=== PATIENT | female | born 1995 | race Caucasian/White ===

== ENCOUNTER 2021-06-26 11:15 | Emergency (ER) | payer OTHER ==
[~2021-06-26] VITALS: Ht 165.1 cm; Wt 54.4 kg
--- NOTE | 2021-06-26 11:28 | NUR ---
[email or web address], medical screening exam in progress
[2021-06-26] MEDS ORDERED: ACETAMINOPHEN ES 500 MG TABLET PO ONE (11:30)
[2021-06-26] MEDS ORDERED: ACETAMINOPHEN ES 500 MG TABLET ONE (11:41)
[2021-06-26 11:50] LABS: HEMATOCRIT 31.2 % (31.2-41.9); MEAN CORPUSCULAR HEMOGLOBIN 30.8 uug (24.7-32.8); MEAN CORPUSCULAR VOLUME 87.5 fL (75.5-95.3); PLATELET COUNT (AUTO) 304 K/uL (179-408)
[2021-06-26 11:54] LABS: CARBON DIOXIDE 24 mmol/L (21-32); CHLORIDE 100 mmol/L (98-107); CREATININE 0.5 mg/dL (0.6-1.3); GLUCOSE 91 mg/dL (74-106); POTASSIUM 3.8 mmol/L (3.5-5.1); UREA NITROGEN, BLOOD 7 mg/dL (7-18)
[2021-06-26 12:00] LABS: ALANINE AMINOTRANSFERASE 16 U/L (14-59); ALKALINE PHOSPHATASE 60 U/L (50-136); ASPARTATE AMINOTRANSFERASE 17 U/L (15-37); BILIRUBIN,DIRECT 0.1 mg/dL (0.0-0.2); BILIRUBIN,TOTAL 0.2 mg/dL (0.2-1.0); LIPASE 129 U/L (73-393); TOTAL PROTEIN, SERUM 7.2 g/dL (6.4-8.2)
[2021-06-26 12:12] LABS: *BILIRUBIN,URIN NEGATIVE (NEGATIVE); *BLOOD, URINE NEGATIVE (NEGATIVE); *CLARITY,URINE CLEAR (CLEAR); *COLOR,URINE YELLOW (YELLOW); *KETONES,URINE NEGATIVE (NEGATIVE); *UROBILINOGEN,URINE 0.2 E.U./dl (NORMAL); LEUKOCYTE ESTERASE ,URINE 1+ (NEGATIVE); NITRITE, URINE NEGATIVE (NEGATIVE); UGLUCOSE NEGATIVE (NEGATIVE)
--- NOTE | 2021-06-26 13:11 | NUR ---
For discharge, pending written discharge papers from Dr Souza
[2021-06-26] MEDS ORDERED: NITR100C11 PO (14:09)
--- NOTE | 2021-06-26 14:23 | NUR ---
Patient discharged to home in stable condition with brisk steady gait. Written and verbal after care instructions given to patient and family with spouse in [place]. Patient and family verbalized understanding of instructions. Stressed follow up with medical director or return to ER for worsening s/s.
[2021-06-26 14:51] LABS: BACTERIA,URINE FEW /HPF (NONE SEEN); RBC,URINE 0-3 /HPF (0-3); SQUAMOUS EPITHELIAL CELL,UR MODERATE /HPF (NONE SEEN); URINE AMORPHOUS URATE FEW /HPF
== END 2021-06-26 14:24 | disposition home or self-care (01) ==
LOC: ER 11:15
DX: O23.42 Unspecified infection of urinary tract in pregnancy, second trimester (principal); Z3A.25 25 weeks gestation of pregnancy; R10.32 Left lower quadrant pain
CPT/HCPCS: 36415; 70030-TC; 83690; 85025; 87086; A4663; A9150

== ENCOUNTER 2021-07-10 08:00 | Emergency (ER) | payer OTHER ==
[~2021-07-10] VITALS: Ht 165.1 cm; Wt 60.8 kg
[~2021-07-10 08:00] MED LIST: NITR100C11 PO
[2021-07-10] MEDS: ACETAMINOPHEN 325 MG TABLET PO ONE (08:45)
[2021-07-10 08:49] LABS: HEMATOCRIT 32.3 % (31.2-41.9); MEAN CORPUSCULAR HEMOGLOBIN 30.3 uug (24.7-32.8); MEAN CORPUSCULAR VOLUME 88.3 fL (75.5-95.3); PLATELET COUNT (AUTO) 301 K/uL (179-408)
[2021-07-10] MEDS ORDERED: ACETAMINOPHEN 325 MG TABLET ONE (08:50)
[2021-07-10 08:57] LABS: CREATININE 0.6 mg/dL (0.6-1.3); POTASSIUM 3.9 mmol/L (3.5-5.1)
[2021-07-10 09:10] LABS: BILIRUBIN,DIRECT 0.1 mg/dL (0.0-0.2); BILIRUBIN,TOTAL 0.3 mg/dL (0.2-1.0); TOTAL PROTEIN, SERUM 7.5 g/dL (6.4-8.2)
[2021-07-10 10:21] VITALS: BP 119/61
--- NOTE | 2021-07-10 10:21 | NUR ---
Patient discharged to home in stable condition. Written and verbal after care instructions given. Patient verbalizes understanding of instructions. Stressed follow up or return to ER for worsening s/s.
== END 2021-07-10 10:22 | disposition home or self-care (01) ==
LOC: ER 08:00
DX: O26.892 Other specified pregnancy related conditions, second trimester (principal); R07.9 Chest pain, unspecified; Z3A.00 Weeks of gestation of pregnancy not specified
CPT/HCPCS: 36415; 70030-TC; 85025; 85730; 93005; A4663

== ENCOUNTER 2022-05-26 20:27 | Emergency (ER) | payer OTHER ==
[~2022-05-26] VITALS: Ht 157.5 cm; Wt 49.9 kg
[2022-05-26] MEDS ORDERED: HYDR-500 PO (21:53)
--- NOTE | 2022-05-26 22:00 | NUR ---
Patient discharged to home in stable condition with taking patient home.. Written and verbal after care instructions given. Patient verbalizes understanding of instructions. Stressed follow up or return to ER for worsening s/s.
[2022-05-26 22:56] VITALS: BP 130/75
== END 2022-05-26 22:00 | disposition home or self-care (01) ==
LOC: ER 20:27
DX: L29.9 Pruritus, unspecified (principal)
CPT/HCPCS: A4663

== ENCOUNTER 2024-03-29 17:04 | Emergency (ER) | payer OTHER ==
[~2024-03-29] VITALS: Ht 160 cm; Wt 52.2 kg
[~2024-03-29 17:04] MED LIST changes: +HYDR-500 PO
[2024-03-29] MEDS ORDERED: METOCLOPRAMIDE HCL 10 MG/2 ML VIAL ONE (17:52)
[2024-03-29] MEDS: METOCLOPRAMIDE HCL 10 MG/2 ML VIAL IM ONE (17:55)
[2024-03-29] MEDS ORDERED: METO-295 PO (18:32)
[2024-03-29 18:37] VITALS: BP 126/83; TEMP 98.6; O2SAT 98
== END 2024-03-29 18:30 | disposition home or self-care (01) ==
LOC: ER 17:05
DX: O00.01 Abdominal pregnancy with intrauterine pregnancy (principal); O26.899 Other specified pregnancy related conditions, unspecified trimester; R51.9 Headache, unspecified; Z79.899 Other long term (current) drug therapy
CPT/HCPCS: A4606; A4663; J2765

== ENCOUNTER 2025-08-06 17:40 | Emergency (ER) | payer MEDICARE, OTHER ==
[~2025-08-06] VITALS: Ht 160 cm; Wt 54.4 kg
[~2025-08-06 17:40] MED LIST changes: +METO-295 PO
[2025-08-06 17:55] VITALS: BP 122/75
[2025-08-06 18:11] LABS: *BILIRUBIN,URIN NEGATIVE (NEGATIVE); *BLOOD, URINE NEGATIVE (NEGATIVE); *CLARITY,URINE CLEAR (CLEAR); *COLOR,URINE YELLOW (YELLOW); *KETONES,URINE TRACE (NEGATIVE); *PROTEIN,URINE NEGATIVE (NEGATIVE); *UROBILINOGEN,URINE 0.2 E.U./dl (NORMAL); LEUKOCYTE ESTERASE ,URINE TRACE (NEGATIVE); NITRITE, URINE NEGATIVE (NEGATIVE); UGLUCOSE NEGATIVE (NEGATIVE)
[2025-08-06 18:25] LABS: PLATELET COUNT (AUTO) 279 K/uL (179-408); RED BLOOD CELL COUNT(AUTO) 4.52 MIL/uL (3.63-4.92); RED CELL DISTRIBUTION WIDTH 13.9 % (12.3-17.7); WHITE BLOOD COUNT (AUTO) 6.4 K/uL (3.8-11.8)
[2025-08-06 18:25] LABS: *URINE HCG, QUAL NEGATIVE (NEGATIVE)
[2025-08-06 18:33] LABS: CREATININE 0.6 mg/dL (0.6-1.3); SODIUM SERUM 143.0 mmol/L (136-145); UREA NITROGEN, BLOOD 17.0 mg/dL (7-18)
[2025-08-06 18:38] LABS: ASPARTATE AMINOTRANSFERASE 12.0 U/L (15-37); TOTAL PROTEIN, SERUM 8.3 g/dL (6.4-8.2)
[2025-08-06 18:44] LABS: SQUAMOUS EPITHELIAL CELL,UR FEW /HPF (NONE SEEN)
[2025-08-06] MEDS ORDERED: SWABABLE VALVE TRANSFER SET EA MC ONE (19:09)
[2025-08-06] MEDS ORDERED: IOHEXOL 300MG/ML 100 ML INFUS..BTL ONE (19:09)
[2025-08-06] MEDS ORDERED: IV NORMAL SALINE 250 ML IV ONE (19:09)
[2025-08-06] MEDS ORDERED: HYDR-4209 PO (20:19)
[2025-08-06] MEDS ORDERED: ONDA4TAB11 PO (20:19)
[2025-08-06] MEDS ORDERED: ONDANSETRON 4 MG/2 ML VIAL ONE (20:25)
[2025-08-06] MEDS ORDERED: MORPHINE SULFATE 4 MG/1 ML DISP.SYRIN ONE (20:25)
[2025-08-06] MEDS: MORPHINE SULFATE 4 MG/1 ML DISP.SYRIN IV ONE (20:32)
[2025-08-06] MEDS: ONDANSETRON 4 MG/2 ML VIAL IV ONE (20:32)
[2025-08-06 21:05] VITALS: BP 126/72; O2SAT 98
== END 2025-08-06 21:06 | disposition home or self-care (01) ==
LOC: ER 17:40
DX: R10.9 Unspecified abdominal pain (principal); R10.20 Pelvic and perineal pain unspecified side; M54.50 Low back pain, unspecified; M79.661 Pain in right lower leg
CPT/HCPCS: 99285; 74177; 96374; 76856; 96375; 80076; 80048; 81001; 84703; 85025; 36415; J2405; Q9967; J2270; A4606; A4663